=== PATIENT | male | born 1970 | race Caucasian/White ===

== ENCOUNTER 2021-01-16 10:41 | Outpatient (REF) | payer OTHER, SELFPAY ==
[2021-01-16 22:13] LABS: Hemoglobin A1C 5.8 % (<5.7)
[2021-01-16 22:18] LABS: ALT 53 U/L (16-63); AST 22 U/L (15-37); Albumin 3.9 g/dL (3.4-5.0); Alkaline Phosphatase 121 U/L (46-116); Anion Gap 10.3 mmol/L (3-11); BUN 13 mg/dL (7-18); Bilirubin, Total 0.5 mg/dL (0.2-1.0); CO2 27.7 mmol/L (21.0-32.0); CREATININE 1.5 mg/dL (0.70-1.30); Calcium 9.2 mg/dL (8.5-10.1); Calculated LDL 87 mg/dL (<100); Chloride 102 mmol/L (98-107); Cholesterol 157 mg/dL (<200); Estimated GFR 49.74 (mL/min/1.73m2); GGT 57 U/L (15-85); Glucose 132 mg/dL (74-106); HDL Cholesterol 54 mg/dL (40-60); Potassium 4.2 mmol/L (3.5-5.1); Sodium 140 mmol/L (136-145); Total Protein 7.5 g/dL (6.4-8.2); Triglyceride 82 mg/dL (<150)
[2021-01-16 22:59] LABS: Bilirubin, Direct 0.1 mg/dL (0.0-0.2)
== END 2021-01-16 10:42 | disposition home or self-care (01) ==
LOC: NCHCN 10:41
PROVIDERS: PCP Emergency Medicine; Visit Provider Emergency Medicine
DX: I10 Essential (primary) hypertension (principal); E78.5 Hyperlipidemia, unspecified; E66.9 Obesity, unspecified; E11.9 Type 2 diabetes mellitus without complications
CPT/HCPCS: 80048; 80061; 80076; 82977; 83036

== ENCOUNTER 2023-02-23 06:48 | Observation (INO) | payer BC, SELFPAY ==
[2023-02-23] VITALS (53 sets, daily range): BP systolic 122–148; BP diastolic 74–128; PULSE 58–107; RESP 8–26; TEMP 35.3–36.9; O2SAT 94–99
--- NOTE | 2023-02-23 07:00 | RT.EKG_ITS ---
APPROVED REPORT Exam: Resting ECG Reason for Exam: sob Patient Location: E HR:77 bpm ECG Measurements Heart Rate 77 AXIS ND 160 P -4 QRSd 95 QRS -11 QT 376 T 20 QTc 426 Conclusion Sinus rhythm...normal P axis, V-rate 60- 99 Narrow complex normal sinus rhythm at a rate of 77. Normal axis. Intervals within normal limits. T wave inversion in lead III. No ST segment abnormalities. No acute injury pattern. No prior for co mparison.
--- NOTE | 2023-02-23 07:30 | DI.RAD_ITS ---
Exam(s) XR CHEST 2V PA LATERAL EXAM: XR CHEST 2V PA LATERAL CLINICAL HISTORY: Shortness of breath TECHNIQUE: 2D digital imaging was performed. COMPARISON: CR ABD FLAT UPRIGHT PA CHEST from 10/20/2012 FINDINGS: HEART: Normal size. Aorta: Not dilated. PULMONARY VASCULATURE: Normal. LUNGS: Streaky densities seen in the region of the lingula appear unchanged from prior may represent atelectasis versus scarring. No definite acute infiltrate. PLEURAL SPACE: No pleural effusion or pneumothorax. BONE:Unremarkable for age. IMPRESSION: No acute abnormality. DATA REPOSITORY: RADIATION DOSE DELIVERED:
--- NOTE | 2023-02-23 07:40 | ED.GENADUL_ITS ---
Discharge Plan Discharge Details Chief Complaint: SOB Primary Care Provider: Waqar Abdalla ED Provider: Dominic Mesa Home Meds and New Rx's Prescriptions: No Action simvastatin 10 mg tablet 10 mg PO QHS Qty: 90 3RF lisinopril 10 mg tablet 10 mg PO DAILY Qty: 90 6RF fexofenadine [Aller-ease] 180 MG tablet 1 tab PO DAILY Medical Decision Making This is an overall well-appearing normothermic and not tachycardic 52-year-old male with a risk factors for ACS and dizziness and shortness of breath concerning for possibility of ACS. His ECG is nonischemic however based on his risk factors will obtain 2 troponins. PE is also certainly a possibility so we will obtain a D-dimer as patient is low risk for Wells perspective. He did vomit several days ago and this raises the possibility of esophageal rupture. He has no crepitance so my suspicion for esophageal rupture is low. No trauma and equal clear lungs so no suspicion for pneumothorax. He has not had any fevers nor cough to suggest pneumonia however will obtain a two-view chest x- ray. No tearing quality to his pain to suggest aortic dissection. No rash to his chest to suggest zoster. No pain out of proportion to suggest necrotizing soft tissue infection. He is not hypotensive nor tachycardic and his ECG does not show low voltage so I am not suspicious for tamponade. Furthermore he is not a dialysis patient and is not high risk for a pericardial effusion. I have initiated testing in the ED and signed patient out to Dr. Torrez pending reassessment and follow-up on labs and two-view chest x-ray. No significant lower extremity edema to suggest acute CHF. Patient has an elevated BMI which raises possibility of pancreatitis so I sent a lipase. I treated the patient with 324 mg of aspirin. His also asked me to test him for Lyme disease as he has reportedly been bit by multiple ticks this year. I sent a tickborne panel however will defer doxycycline at this point time as patient's ECG does not show any signs of Lyme carditis given normal NM interval. Furthermore he is not ill-appearing to suggest babesiosis nor ehrlichiosis. HPI General Date/Time Provider Initiated Documentation: 02/23/23 07:34 . HPI Narrative: This is a 52-year-old male with family history of coronary artery disease and personal history of hypertension hyperlipidemia and obesity arriving to the emergency department via private vehicle in the setting of nauseousness, shortness of breath, dizziness and a discomfort in his epigastrium. 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 He left work and came home early which his reports is atypical. He occasionally has had chest pain during this duration. His chest pain did not radiate. It was not associated with diaphoresis. He does note that several days ago he had a pain in his left wrist and subsequently became stiff. 3 days ago he also vomited. He has had no fevers nor chills. He is never had a PE nor DVT. He regularly drinks alcohol but does not have a history of withdrawal from alcohol. He uses chewing tobacco. He has not taken any recent falls. He has not noticed any recent rashes. Related Data Home Medications Medication Instructions Recorded Confirmed fexofenadine 180 mg tablet 1 tab PO DAILY 10/23/12 02/23/23 (Aller-ease) lisinopril 10 mg tablet 10 mg PO DAILY #90 tab-caps 02/21/22 02/23/23 simvastatin 10 mg tablet 10 mg PO QHS #90 tabs 02/21/22 02/23/23 Previous Rx's Medication Instructions Recorded lisinopril 10 mg tablet 10 mg PO DAILY #90 tab-caps 02/21/22 simvastatin 10 mg tablet 10 mg PO QHS #90 tabs 02/21/22 Allergies Allergy/AdvReac Type Severity Reaction Status Date / Time Iodinated Contrast Media Allergy Unverified 02/23/23 06:59 [Iodinated Contrast- Oral and IV Dye] shellfish derived Allergy Unverified 02/23/23 06:59 pet dander Allergy Mild Uncoded 02/23/23 06:59 General Stated Complaint: SOB KATELIN: 2 PFSH All Active Problems (Updated 02/21/22 @ 14:08 by Waqar Abdalla NP) Renal insufficiency (Chronic) H/O splenectomy (Acute) Obesity (Chronic) Hyperlipidemia (Acute) Hypertension (Chronic) Medical History Family history of coronary artery disease (11/24/14) Fracture of tibia History of tobacco use Surgical History (Updated 01/16/21 @ 16:27 by Tim Reyes DO) Fracture, Open Treatment right leg Splenomegaly 1977 Family History (Updated 02/22/22 @ 09:12 by Marina Arguello) Mother Essential hypertension Hyperlipidemia Father Myocardial infarction Brother Heart disease Myocardial infarction Grandfather Heart disease Myocardial infarction Grandmother Personal history of malignant neoplasm Grandmother Heart disease Stroke Social History (Updated 02/22/22 @ 10:13 by Marina Arguello) Smoking/Tobacco Use Status: Never Tobacco: How many years used: 30 Smokeless tobacco user: snuff Quit status: not considering quitting Second Hand Exposure: Yes Smoking risk assessment performed?: Yes Alcohol Intake: current Alcohol Intake frequency: 0-2 drinks per day Alcohol type: beer Drug use: Never Substance use type: does not use Caregiver/Support person: No Household members: spouse Housing: house Communication Needs: None Do you need help understanding health information?: Never Pets and animals: Yes Pets and animals: dog(s) and horse(s) Sexually active: Yes Do you think of yourself as: straight/heterosexual Current gender identity: male What is your relationship status?: How often do you talk on the phone with friends or family?: three or more times per week How often do you get together with friends or relatives?: once per week How often do you attend congregation or restorationist services?: decline to answer Do you belong to any clubs or organized social groups?: no Panel score (0-1 are the most socially isolated patients): 2 What type of physical activity do you participate in: none Frequency: does not exercise Linda/Confucianist: No preference Special linda needs: No Seatbelt use: sometimes Helmet use: Yes Helmet use: sometimes Drive intox or ride w/intox p d driver: No Exam Narrative Exam Narrative: General: Well-appearing in no acute distress speaking in complete sentences. Head: Normocephalic, atraumatic. Eye: Extraocular eye movements intact. No conjunctival injection. No scleral icterus. Ear, nose, mouth, throat: Grossly normal inspection. Normal voice, handling secretions normally. Neck: Trachea midline. Cardiovascular: Well-perfused distal extremities. Regular rate and rhythm. Respiratory: Nonlabored respiration. Clear lungs bilaterally. Gastrointestinal: Nondistended abdomen. Soft nontender abdomen. Musculoskeletal: No edema. Moving all 4 extremities spontaneously. Skin: Normal for age and race, grossly normal temperature and turgor. No acute rash. Neurologic: Alert and appropriate, no apparent acute deficits. Psychiatric: Mood and manner are appropriate. Grooming and personal hygiene are appropriate. Course Vital Signs Vital signs: Vital Signs Temperature 36.9 C 02/23/23 06:51 Pulse 77 02/23/23 06:51 Respiratory Rate 16 02/23/23 06:51 Blood Pressure 146/81 H 02/23/23 06:51 Pulse Oximetry 95 02/23/23 06:51 Temperature 36.9 C 02/23/23 06:51 Temperature Source Temporal Artery Scan 02/23/23 06:51 Pulse 77 02/23/23 06:51 Respiratory Rate 20 02/23/23 07:21 Respiratory Effort Normal 02/23/23 07:21 Respiratory Depth Normal 02/23/23 07:21 Respiratory Pattern Normal 02/23/23 07:21 Blood Pressure 146/81 H 02/23/23 06:51 Blood Pressure Position Supine 02/23/23 06:51 Pulse Oximetry 95 02/23/23 06:51 Oxygen Delivery Method Room Air 02/23/23 06:51 Oxygen Flow Rate 0 02/23/23 06:51 Pain Level 0 02/23/23 06:51
--- NOTE | 2023-02-23 07:42 | ED.PROG_ITS ---
Date of service: 02/23/23 Time of Service: 08:00 Medical Decision Making The patient is asplenic. He has not received any of his immunizations. His chest x-ray shows a question of atelectasis versus pneumonia in the medial left base. He did have a cough and cold about a month ago and is improving but I am going to write for Rocephin and Zithromax to cover him for pneumonia because he is asplenic. The patient is willing to be admitted. I have discussed with the hospitalist and we will admit him for observation Medical Records Medical records reviewed: Yes I reviewed the patient's medical records. Lab Data Lab results reviewed: Yes I reviewed the patient's lab results. Narrative I have seen and examined the patient. I have asked the hospitalist to be paged. His HEART score is 4 (moderate). Sign Out Sign Out Data: Sign Out Comment: Patient will require follow-up of labs chest x-ray and D-dimer with the possibility of CT scan. He will also require reassessment. He has risk factors for ACS and hospitalization certainly seems reasonable if his ische samuel evaluation is negative. Last updated by Dominic Mesa MD at 02/23/23 07:48 Discharge Plan Disposition Patient Disposition: Admit to [facility] Discharge Details Clinical Impression: Breath shortness, Renal insufficiency, Hypertension, Hyperlipidemia, Obesity, H/O splenectomy, Epigastric abdominal pain Admit Date/Time: 02/23/23 11:58 Admit Provider: Arun Rosales Attending Provider: Arun Rosales Primary Care Provider: Waqar Abdalla ED Provider: Lori Saldana Discharge Data Discharge Date/Time-TO BE ENTERED AT DEPARTURE: 02/23/23 12:58 Discharge Physician: Lori Saldana
[2023-02-23] MEDS: Aspirin 81 MG CHEW 324 MG CH (07:45)
[2023-02-23 07:52] LABS: Abs Immature Grans 0.02 10^3/uL (0.0-0.06); Absolute Basophil Count 0.08 10^3/uL (0.0-0.2); Absolute Eosinophil Count 0.13 10^3/uL (0.0-0.7); Absolute Lymphocyte Count 2.14 10^3/uL (1.2-3.4); Absolute Monocyte Count 1.15 10^3/uL (0.1-0.8); Absolute Neutrophil Count 4.78 10^3/uL (1.2-6.7); Eosinophils % 1.6; HCT 43.8 % (40.0-50.0); HGB 15.3 g/dL (13.5-17.5); Immature Grans % 0.2; Lymphocytes % 25.8; MCH 34.6 pg (27.0-33.0); MCHC 34.9 % (32.0-36.0); MCV 99 fL (80-95); MPV 11.7 fL (8.0-11.0); Monocytes % 13.9; Neutrophils % 57.5; Platelet Count 297 10^3/uL (130-400); RBC 4.42 10^6/uL (4.36-5.78); RDW-SD 44.2 fL
[2023-02-23 08:14] LABS: ALT 50 U/L (16-63); AST 26 U/L (15-37); Albumin 3.7 g/dL (3.4-5.0); Alkaline Phosphatase 95 U/L (46-116); BUN 15 mg/dL (7-18); Bilirubin, Total 0.5 mg/dL (0.2-1.0); CREATININE 1.2 mg/dL (0.70-1.30); Calcium 9.1 mg/dL (8.5-10.1); Chloride 104 mmol/L (98-107); Estimated GFR 73.22 (mL/min/1.73m2); Glucose 112 mg/dL (74-106); Lipase 53 U/L (16-77); Potassium 3.9 mmol/L (3.5-5.1); Sodium 140 mmol/L (136-145); Total Protein 7.6 g/dL (6.4-8.2); Troponin I < 50 ng/L (<or=60)
[2023-02-23 08:30] LABS: D-Dimer 200 ng/mlFEU (<500)
--- NOTE | 2023-02-23 08:32 | DI.VRAD_ITS ---
PROCEDURE INFORMATION: Exam: XR Chest Exam date and time: 02/23/2023 8:20 AM Age: 52 years old Clinical indication: Other: Shortness of breath TECHNIQUE: Imaging protocol: Radiologic exam of the chest. Views: 2 views. COMPARISON: No relevant prior studies available. FINDINGS: Lungs: Opacity in the medial left base may represent atelectasis or pneumonia.. Pleural spaces: Unremarkable. No pleural effusion. No pneumothorax. Heart/Mediastinum: Unremarkable. No cardiomegaly. Bones/joints: Unremarkable. IMPRESSION: Opacity in the medial left base may represent atelectasis or pneumonia.. Dictated and Authenticated by: Calvin Hussein MD. Ordering:ALEAH Alfaro MD
[2023-02-23 09:17] LABS: COVID-19 PCR Negative (Negative); Influenza A PCR Negative (Negative); Influenza B PCR Negative (Negative); RSV PCR Negative (Negative)
[2023-02-23 09:18] LABS: Source Nasopharynx
--- NOTE | 2023-02-23 09:28 | W.EDPROG ---
Date of service: 02/23/23 Time of Service: 08:00 Sign Out Sign Out Data: Sign Out Comment: Patient will require follow-up of labs chest x-ray and D-dimer with the possibility of CT scan. He will also require reassessment. He has risk factors for ACS and hospitalization certainly seems reasonable if his ischemic evaluation is negative. Last updated by Dominic Mesa MD at 02/23/23 07:48 Discharge Plan Disposition Patient Disposition: Admit to [facility] Discharge Details Clinical Impression: Breath shortness, Renal insufficiency, Hypertension, Hyperlipidemia, Obesity, H/O splenectomy, Epigastric abdominal pain Admit Date/Time: 02/23/23 11:58 Admit Provider: Arun Rosales Attending Provider: Arun Rosales Primary Care Provider: Waqar Abdalla ED Provider: Lori Saldana Discharge Data Discharge Date/Time-TO BE ENTERED AT DEPARTURE: 02/23/23 12:58 Discharge Physician: Lori Saldana
[2023-02-23] MEDS: Azithromycin 250 MG TAB 500 MG PO (10:00)
[2023-02-23 11:09] LABS: Troponin I < 50 ng/L (<or=60)
--- NOTE | 2023-02-23 16:34 | W.PM.HP.N ---
Date of service: 02/23/23 Time of Service: 16:35 Assessment and Plan Assessment and plan (1) Epigastric abdominal pain: Status: Acute Assessment and plan: Protonix IV Telemetry patient eating pizza hut during assessment, encoucraged to eat heart healthy (2) Family history of coronary artery disease: Assessment and plan: Brother and father Echo ordered for 02/24 (3) Obesity: Status: Chronic Assessment and plan: BMI 32.7 nutrition consult (4) Hyperlipidemia: Status: Acute Assessment and plan: continue simvastatin; check lipid panel am 02/24 (5) Hypertension: Status: Chronic Assessment and plan: continue lisinopril Discussed with Dr Rosales History of Present Illness Narrative: This is a 52-year-old male patient with past medical history of hypertension, hyperlipidemia and obesity who presented to the [facility] emergency department via private vehicle on 02/23 with complaint of nausea, shortness of breath, dizziness and a epigastric pain.? 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 3 days ago he did vomit, but has not since.? He has had no fevers nor chills.? He is never had a PE nor DVT.? He regularly drinks alcohol but does not have a history of withdrawal from alcohol.? He uses chewing tobacco.? He has not had any recent falls.? He has not noticed any recent rashes. He denies palpitations. In the ED he has negative troponins, EKG nonishcemic, normal sinus rhythm. Patient's father and brother both had heart issues in their 40s. ? Labs unremarkable. CXR no acute finding. He is placed on the medical floor on observation status with potential echo and stress test tomorrow. Review of Systems All systems reviewed & are unremarkable except as noted in HPI and below PFSH All Active Problems (Updated 02/23/23 @ 10:11 by Lori Saldana MD) Breath shortness (Acute) Epigastric abdominal pain (Acute) Renal insufficiency (Chronic) H/O splenectomy (Acute) Obesity (Chronic) Hyperlipidemia (Acute) Hypertension (Chronic) Medical History Family history of coronary artery disease (11/24/14) Fracture of tibia History of tobacco use Surgical History (Updated 02/23/23 @ 10:11 by Lori aSldana MD) Fracture, Open Treatment right leg Splenomegaly 1978 Family History (Updated 02/22/22 @ 09:12 by Marina Arguello) Mother Essential hypertension Hyperlipidemia Father Myocardial infarction Brother Heart disease Myocardial infarction Grandfather Heart disease Myocardial infarction Grandmother Personal history of malignant neoplasm Grandmother Heart disease Stroke Social History (Updated 02/22/22 @ 10:13 by Marina Arguello) Smoking/Tobacco Use Status: Never Tobacco: How many years used: 30 Smokeless tobacco user: snuff Quit status: not considering quitting Second Hand Exposure: Yes Smoking risk assessment performed?: Yes Alcohol Intake: current Alcohol Intake frequency: 0-2 drinks per day Alcohol type: beer Drug use: Never Substance use type: does not use Caregiver/Support person: No Household members: spouse Housing: house Communication Needs: None Do you need help understanding health information?: Never Pets and animals: Yes Pets and animals: dog(s) and horse(s) Sexually active: Yes Do you think of yourself as: straight/heterosexual Current gender identity: male What is your relationship status?: How often do you talk on the phone with friends or family?: three or more times per week How often do you get together with friends or relatives?: once per week How often do you attend muslim or adventist services?: decline to answer Do you belong to any clubs or organized social groups?: no Panel score (0-1 are the most socially isolated patients): 2 What type of physical activity do you participate in: none Frequency: does not exercise Linda/Pentecostal: No preference Special linda needs: No Seatbelt use: sometimes Helmet use: Yes Helmet use: sometimes Drive intox or ride w/intox limo driver: No Meds Allergies and Home Medications Allergies Allergy/AdvReac Type Severity Reaction Status Date / Time Iodinated Contrast Media Allergy Unverified 02/23/23 06:59 [Iodinated Contrast- Oral and IV Dye] shellfish derived Allergy Unverified 02/23/23 06:59 pet dander Allergy Mild Uncoded 02/23/23 06:59 Home Medications Medication Instructions Recorded Confirmed Type fexofenadine 180 mg tablet 1 tab PO DAILY 10/23/12 02/23/23 History (Aller-ease) lisinopril 10 mg tablet 10 mg PO DAILY #90 tab-caps 02/21/22 02/23/23 Rx simvastatin 10 mg tablet 10 mg PO QHS #90 tabs 02/21/22 02/23/23 Rx azelastine 205.5 mcg (0.15 %) See Rx Instructions .Route 02/23/23 02/23/23 History nasal spray .COMPLEX PRN Exam Narrative Exam Narrative: General: Well-appearing in no acute distress speaking in complete sentences. Head: Normocephalic, atraumatic. Eye: Extraocular eye movements intact. No conjunctival injection. No scleral icterus. Ear, nose, mouth, throat: Grossly normal inspection. Normal voice, handling secretions normally. Neck: Trachea midline. Cardiovascular: Well-perfused distal extremities. Regular rate and rhythm. Respiratory: Nonlabored respiration. Clear lungs bilaterally. Gastrointestinal: Nondistended abdomen. Soft nontender abdomen. Musculoskeletal: No edema. Moving all 4 extremities spontaneously. Skin: Normal for age and race, grossly normal temperature and turgor. No acute rash. Neurologic: Alert and appropriate, no apparent acute deficits. Psychiatric: Mood and manner are appropriate. Grooming and personal hygiene are appropriate. Results Labs 02/23/23 07:15 02/23/23 07:15 Labs: Laboratory Results - last 24 hr 02/23/23 02/23/23 02/23/23 07:15 07:15 07:15 WBC 8.30 RBC 4.42 Hgb 15.3 Hct 43.8 MCV 99 H MCH 34.6 H MCHC 34.9 RDW 12.0 Plt Count 297 MPV 11.7 H Immature Gran % 0.2 Neutrophils % 57.5 Lymphocytes % 25.8 Monocytes % 13.9 Eosinophils % 1.6 Basophils % 1.0 Nucleated RBC % 0.0 Absolute Neutrophils 4.78 Absolute Lymphocytes 2.14 Absolute Monocytes 1.15 H Absolute Eosinophils 0.13 Absolute Basophils 0.08 D-Dimer 200 Sodium 140 Potassium 3.9 Chloride 104 Carbon Dioxide 28.0 Anion Gap 8.0 BUN 15 Creatinine 1.2 Est GFR (CKD-EPI 2020) 73.22 Glucose 112 H Calcium 9.1 Magnesium 2.0 Total Bilirubin 0.5 AST 26 ALT 50 Alkaline Phosphatase 95 Troponin I < 50 Total Protein 7.6 Albumin 3.7 Lipase 53 COVID-19 Source SARS-CoV-2 (PCR) Influenza Type A (PCR) Influenza Type B (PCR) RSV (PCR) 02/23/23 02/23/23 02/23/23 07:34 08:05 10:45 WBC RBC Hgb Hct MCV MCH MCHC RDW Plt Count MPV Immature Gran % Neutrophils % Lymphocytes % Monocytes % Eosinophils % Basophils % Nucleated RBC % Absolute Neutrophils Absolute Lymphocytes Absolute Monocytes Absolute Eosinophils Absolute Basophils D-Dimer Sodium Potassium Chloride Carbon Dioxide Anion Gap BUN Creatinine Est GFR (CKD-EPI 2020) Glucose Calcium Magnesium Total Bilirubin AST ALT Alkaline Phosphatase Troponin I Cancelled < 50 Total Protein Albumin Lipase COVID-19 Source Nasopharynx SARS-CoV-2 (PCR) Negative Influenza Type A (PCR) Negative Influenza Type B (PCR) Negative RSV (PCR) Negative Last Vital Signs Temp 35.9 C L 02/23/23 15:05 Pulse 85 02/23/23 15:24 Resp 17 02/23/23 13:08 BP 147/87 H 02/23/23 15:05 Pulse Ox 97 02/23/23 15:05 Time Spent Time spent with Patient: 55-74 minutes Time was spent: preparing to see the patient(eg.review tests), obtaining and/or reviewing separately otained hiistory, ordering medications,tests, procedures, referring, communicating with other health rn wound care, indepentently interpreting results, counseling the patient and care coordination
[2023-02-23] MEDS: Pantoprazole 40 MG VIAL IVP (19:26)
[2023-02-23] MEDS: Simvastatin 10 MG TAB PO (21:27)
--- NOTE | 2023-02-23 22:28 | ED.PROG_ITS ---
Date of service: 02/23/23 Time of Service: 08:00 Narrative I have seen and examined the patient. I have asked the hospitalist to be paged. His HEART score is 4 (moderate). Sign Out Sign Out Data: Sign Out Comment: Patient will require follow-up of labs chest x-ray and D-dimer with the possibility of CT scan. He will also require reassessment. He has risk factors for ACS and hospitalization certainly seems reasonable if his ischemic evaluation is negative. Last updated by Dominic Mesa MD at 02/23/23 07:48 Discharge Plan Disposition Patient Disposition: Admit to [facility] Discharge Details Clinical Impression: Breath shortness, Renal insufficiency, Hypertension, Hyperlipidemia, Obesity, H/O splenectomy, Epigastric abdominal pain Admit Date/Time: 02/23/23 11:58 Admit Provider: Arun Rosales Attending Provider: Arun Rosales Primary Care Provider: Waqar Abdalla ED Provider: Lori Saldana Discharge Data Discharge Date/Time-TO BE ENTERED AT DEPARTURE: 02/23/23 12:58 Discharge Physician: Lori Saldana
[2023-02-24 00:19] VITALS: BP 111/69; PULSE 60; RESP 18; TEMP 36.8; O2SAT 95
[2023-02-24 05:19] VITALS: BP 112/71; PULSE 78; RESP 18; TEMP 36.5; O2SAT 96
[2023-02-24 07:00] VITALS: PULSE 61
[2023-02-24 07:14] LABS: Abs Immature Grans 0.01 10^3/uL (0.0-0.06); Absolute Basophil Count 0.08 10^3/uL (0.0-0.2); Absolute Eosinophil Count 0.21 10^3/uL (0.0-0.7); Absolute Lymphocyte Count 2.54 10^3/uL (1.2-3.4); Absolute Monocyte Count 1.34 10^3/uL (0.1-0.8); Absolute Neutrophil Count 5.03 10^3/uL (1.2-6.7); Basophils % 0.9; Eosinophils % 2.3; HGB 14.9 g/dL (13.5-17.5); Immature Grans % 0.1; Lymphocytes % 27.6; MCH 34.8 pg (27.0-33.0); MCHC 34.7 % (32.0-36.0); MCV 101 fL (80-95); Monocytes % 14.5; Neutrophils % 54.6; Platelet Count 275 10^3/uL (130-400); RBC 4.28 10^6/uL (4.36-5.78); RDW 12.2 % (11.8-14.1); RDW-SD 45.5 fL; WBC 9.21 10^3/uL (4.4-10.8)
[2023-02-24 07:20] VITALS: BP 109/69; PULSE 67; RESP 16; TEMP 36.4; O2SAT 98
[2023-02-24 07:34] LABS: ALT 51 U/L (16-63); AST 27 U/L (15-37); Albumin 3.3 g/dL (3.4-5.0); Alkaline Phosphatase 88 U/L (46-116); Anion Gap 8.6 mmol/L (3-11); BUN 14 mg/dL (7-18); Bilirubin, Total 0.6 mg/dL (0.2-1.0); CO2 27.4 mmol/L (21.0-32.0); CREATININE 1.3 mg/dL (0.70-1.30); Calcium 8.9 mg/dL (8.5-10.1); Calculated LDL 97 mg/dL (<100); Chloride 104 mmol/L (98-107); Cholesterol 170 mg/dL (<200); Estimated GFR 66.51 (mL/min/1.73m2); Glucose 108 mg/dL (74-106); HDL Cholesterol 47 mg/dL (40-60); Magnesium 2.1 mg/dL (1.8-2.4); Potassium 4.2 mmol/L (3.5-5.1); Sodium 140 mmol/L (136-145); Total Protein 7.2 g/dL (6.4-8.2); Triglyceride 134 mg/dL (<150)
[2023-02-24] MEDS: Lisinopril 10 MG TAB PO (08:52)
[2023-02-24] MEDS: Pantoprazole 40 MG VIAL IVP (08:52)
[2023-02-24] MEDS: Fexofenadine 180 MG TAB PO (08:52)
[2023-02-24 08:56] VITALS: BP 126/80
[2023-02-24] MEDS: Normal Saline Flush 10 ML SYR (09:17)
[2023-02-24 10:27] LABS: Lyme Ab w Rflx to Lyme Confirm Negative (Negative)
--- NOTE | 2023-02-24 10:46 | W.PM.DS.N ---
Date of service: 02/24/23 Time of Service: 10:47 DS: Diagnosis Discharge Diagnosis (1) Epigastric abdominal pain: Status: Acute (2) Family history of coronary artery disease: Asessment and Plan: Echo today:Normal left ventricular wall thickness and chamber size.? Ejection fraction is 50 to 55%.? There are no segmental wall motion abnormalities. Normal right ventricular size and systolic function Both atria are normal in size There is no structural or hemodynamically significant valvular disease Stress ECG Conclusion 1. Resting electrocardiogram was within normal limits 2. Patient exercised on the Luis protocol completed a workload of 10.53 METS, limited by shortness of breath and fatigue 3. Normal heart rate and blood pressure response to exercise.? The patient achieved 100% of predicted heart rate for age 4. There was no electrocardiographic evidence of myocardial ischemia 5. There were no significant dysrhythmias (3) Obesity: Status: Chronic (4) Hyperlipidemia: Status: Acute (5) Hypertension: Status: Chronic Discharge Plan Disposition Patient Disposition: Home Condition: Good Discharge Details Reason For Visit: Dizzy;epigastric pain Admit Date/Time: 02/23/23 11:58 Admit Provider: Arun Rosales Attending Provider: Arun Rosales Primary Care Provider: Waqar Abdalla Hospital Course Hospital Course: This is a 52-year-old male patient with past medical history of hypertension, hyperlipidemia and obesity who presented to the [facility] emergency department via private vehicle on 02/23 with complaint of nausea, shortness of breath, dizziness and a epigastric pain.? 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 3 days ago he did vomit, but has not since.? He has had no fevers nor chills.? He is never had a PE nor DVT.? He regularly drinks alcohol but does not have a history of withdrawal from alcohol.? He uses chewing tobacco.? He has not had any recent falls.? He has not noticed any recent rashes. He denies palpitations.? In the ED he had negative troponins, EKG nonishcemic, normal sinus rhythm. Patient's father and brother both had heart issues in their 40s. ? Labs unremarkable. CXR no acute finding.? He was placed on the medical floor on observation status. Labs continued to be normal. Echo and stress test completed and normal. He was told to follow up with his PCP and if this returns consider referal to cardiology, but risk at this time is very low. He was changed from OTC omeprazole to pantoprazole daily with follow up from PCP. He should continue his home medications. Home Meds and New Rx's Prescriptions: New pantoprazole 40 mg tablet,delayed release (DR/EC) 40 mg PO DAILY Qty: 30 0RF Continued simvastatin 10 mg tablet 10 mg PO QHS Qty: 90 3RF lisinopril 10 mg tablet 10 mg PO DAILY Qty: 90 6RF fexofenadine [Aller-ease] 180 MG tablet 1 tab PO DAILY azelastine 205.5 mcg (0.15 %) [place],Non-Aerosol See Rx Instructions .ROUTE .COMPLEX PRN Rx Instructions: 1 spray as needed Discharge Instructions Instructions: GERD (Gastroesophageal Reflux Disease) (DC), Dizziness (GEN) Additional Instructions: Drink plenty of fluids. Start pantroprazole 40 mg daily for GERD. Continue other home medications. Your echocardiogram and stress test were normal. Follow up with primary care. If you have continued symptoms they may refer you to cardiology. Stand Alone Forms: Nursing Discharge Form Referrals: Waqar Abdalla, [facility]GUILLON DEBEADER [Primary Care Provider] - 02/26/23 3:00 pm (1-2 weeks; started on Pantoprazole 40 mg daily; cardiac workup neg, outpt stress test pending) Activity:: Activity as Tolerated Equipment/Supplies:: No Equipment Needed Diet:: Low Sodium Discharge Orders Discharge Orders: Discharge Order (Routine); Ordered 02/24/23 Ordered By: Zayra Clark Discharge Data Discharge Date/Time-TO BE ENTERED AT DEPARTURE: 02/24/23 15:43 DS: Summary Time Spent with Patient providing and/or coordinating discharge services: Greater than 30 minutes Status at Discharge Functional status at discharge: independent ambulation Overall status at discharge: patient is back to baseline Mental Status: mental status grossly normal Speech and Movement: speech and movement normal Mood: congruent mood Affect: normal affect Exam Narrative Exam Narrative: General: Well-appearing in no acute distress speaking in complete sentences. Head: Normocephalic, atraumatic. Eye: Extraocular eye movements intact. No conjunctival injection. No scleral icterus. Ear, nose, mouth, throat: Grossly normal inspection. Normal voice, handling secretions normally. Neck: Trachea midline. Cardiovascular: Well-perfused distal extremities. Regular rate and rhythm. Respiratory: Nonlabored respiration. Clear lungs bilaterally. Gastrointestinal: Nondistended abdomen. Soft nontender abdomen. Musculoskeletal: No edema. Moving all 4 extremities spontaneously. Skin: Normal for age and race, grossly normal temperature and turgor. No acute rash. Neurologic: Alert and appropriate, no apparent acute deficits. Psychiatric: Mood and manner are appropriate. Grooming and personal hygiene are appropriate. Psych Mental Status: mental status grossly normal Speech and Movement: speech and movement normal Mood: congruent mood Affect: normal affect DS: Data Vitals/I&O Vitals and I&O: Vital Signs Temperature 36.4 C L 02/24/23 07:20 Temperature Source Tympanic 02/24/23 07:20 Pulse 67 02/24/23 07:20 Pulse Rhythm Regular 02/23/23 16:36 Pulse 74 02/23/23 11:30 Respiratory Rate 16 02/24/23 07:20 Respiratory Effort Normal, Non-Labored 02/24/23 08:15 Respiratory Depth Normal 02/24/23 08:15 Respiratory Pattern Normal 02/24/23 08:15 Blood Pressure 126/80 02/24/23 08:56 Blood Pressure Mean 95 02/23/23 10:31 Blood Pressure Position Supine 02/23/23 06:51 Pulse Oximetry 98 02/24/23 07:20 Oxygen Delivery Method Room Air 02/24/23 07:20 Oxygen Flow Rate 0 02/24/23 07:20 Pain Level 0 02/24/23 07:20 Comment pt states he usually takes lisinipril for blood pressure, has not taken today 02/23/23 13:06 Intake & Output 02/23/23 02/23/23 02/24/23 11:59 23:59 11:59 Intake Total 300 / 300 Balance 300 / 300 Weight 97.522 kg 97.522 kg 98 kg Intake: Oral 300 / 300 Other: Urine Appearance Clear Data Completed and Pending Labs on day of discharge: Labs from last 24 hours 02/24/23 02/24/23 02/23/23 07:05 07:05 10:45 WBC 9.21 RBC 4.28 L Hgb 14.9 Hct 43.0 MCV 101 H MCH 34.8 H MCHC 34.7 RDW 12.2 Plt Count 275 MPV 11.0 Immature Gran % 0.1 Neutrophils % 54.6 Lymphocytes % 27.6 Monocytes % 14.5 Eosinophils % 2.3 Basophils % 0.9 Nucleated RBC % 0.0 Absolute Neutrophils 5.03 Absolute Lymphocytes 2.54 Absolute Monocytes 1.34 H Absolute Eosinophils 0.21 Absolute Basophils 0.08 Sodium 140 Potassium 4.2 Chloride 104 Carbon Dioxide 27.4 Anion Gap 8.6 BUN 14 Creatinine 1.3 Est GFR (CKD-EPI 2020) 66.51 Glucose 108 H Calcium 8.9 Magnesium 2.1 Total Bilirubin 0.6 AST 27 ALT 51 Alkaline Phosphatase 88 Troponin I < 50 Total Protein 7.2 Albumin 3.3 L Triglycerides 134 Total Cholesterol 170 LDL Cholesterol, Calc 97 HDL Cholesterol 47 PFSH All Active Problems (Updated 02/23/23 @ 10:11 by Lori Saldana MD) Breath shortness (Acute) Epigastric abdominal pain (Acute) Renal insufficiency (Chronic) H/O splenectomy (Acute) Obesity (Chronic) Hyperlipidemia (Acute) Hypertension (Chronic) Medical History Family history of coronary artery disease (11/24/14) Fracture of tibia History of tobacco use Surgical History (Updated 02/23/23 @ 10:11 by Lori Saldana MD) Fracture, Open Treatment right leg Splenomegaly 1977 Family History (Updated 02/22/22 @ 09:12 by Marina Arguello) Mother Essential hypertension Hyperlipidemia Father Myocardial infarction Brother Heart disease Myocardial infarction Grandfather Heart disease Myocardial infarction Grandmother Personal history of malignant neoplasm Grandmother Heart disease Stroke Social History (Updated 02/22/22 @ 10:13 by Marina Arguello) Smoking/Tobacco Use Status: Never Tobacco: How many years used: 30 Smokeless tobacco user: snuff Quit status: not considering quitting Second Hand Exposure: Yes Smoking risk assessment performed?: Yes Alcohol Intake: current Alcohol Intake frequency: 0-2 drinks per day Alcohol type: beer Drug use: Never Substance use type: does not use Caregiver/Support person: No Household members: spouse Housing: house Communication Needs: None Do you need help understanding health information?: Never Pets and animals: Yes Pets and animals: dog(s) and horse(s) Sexually active: Yes Do you think of yourself as: straight/heterosexual Current gender identity: male What is your relationship status?: How often do you talk on the phone with friends or family?: three or more times per week How often do you get together with friends or relatives?: once per week How often do you attend worship or mosque services?: decline to answer Do you belong to any clubs or organized social groups?: no Panel score (0-1 are the most socially isolated patients): 2 What type of physical activity do you participate in: none Frequency: does not exercise Linda/Gnosticism: No preference Special linda needs: No Seatbelt use: sometimes Helmet use: Yes Helmet use: sometimes Drive intox or ride w/intox petroleum transport driver: No Time Spent with Patient Time Spent with Patient: 45-69 minutes Time was spent: preparing to see the patient(eg.review tests), ordering medications,tests, procedures, referring, communicating with other health home care companion, indepentently interpreting results, counseling the patient and care coordination
--- NOTE | 2023-02-24 11:00 | DI.US_ITS ---
APPROVED REPORT EXAM: Comprehensive 2D, Doppler, and color-flow Echocardiogram Patient Location: In-Patient Room/Bed: [address] Documents Closer: Rose Lainez RDCS (AE) Indications: Family HX CAD, Hyperlipidemia, Nausea, SOB Other Information Study Quality: Adequate Conclusion Normal left ventricular wall thickness and chamber size. Ejection fraction is 50 to 55%. There are no segmental wall motion abnormalities Normal right ventricular size and systolic function Both atria are normal in size There is no structural or hemodynamically significant valvular disease Right ventricular systolic pressure could not be estimated Wall motion Left Ventricle The left ventricle is normal size. Left ventricular systolic function is borderline. There is normal left ventricular wall thickness. No segmental wall motion abnormalities There is no ventricular septa l defect visualized. LVEF is 50-55%. Right Ventricle The right ventricle is normal size. The right ventricular systolic function is normal. Atria The left atrium size is normal. The right atrium size is normal. The interatrial septum is intact wit h no evidence for an atrial septal defect. Aortic Valve The aortic valve is normal in structure. Aortic valve is trileaflet. There is no aortic valvular sten osis. No aortic regurgitation is present. Mitral Valve The mitral valve is normal in structure. No evidence of mitral valve stenosis. Trace mitral regurgita tion. Tricuspid Valve The tricuspid valve is normal in structure. There is no tricuspid valve stenosis. Trace tricuspid reg urgitation. Pulmonic Valve The pulmonary valve is normal in structure. There is no pulmonic valvular stenosis. Trace pulmonic re gurgitation. Great Vessels The aortic root is normal in size. The ascending aorta is normal in size. The IVC collapses <50% with inspiration. Pericardium There is no pericardial effusion. 2D Dimensions IVSD d PLAX 0.94 cm M: 0.6-1.2 LV Vol A4C d MOD 96.7 mL LVPW d PLAX 0.93 cm M: 0.6 - 1.2 LV EF A4C MOD 58.2 % LVID d PLAX 4.87 cm M: 4.2 - 5.8 LV EF A2C MOD 50.5 % LVDs 3.55 cm M: 2.5 - 4.0 LV EF Biplane MOD 49.3 % Ao Root d 2.78 cm M: 3.1 - 3.7 Ao Asc Diam d 2.69 cm M: 2.6 - 3.4 LV EF Pedroichkenn 52.3 % LVEF (Marquez's) 49.32 % M: 52 - 72 LV Volume 92.80 mL M: 62 - 150 LV Volume Index 43.98 mL/m2 M: 34 - 74 LV Vol Biplane MOD 92.8 mL FS 26.85 % M-Mode TAPSE 2.20 cm (M/F) >1.7 LV Diastology LV E/e MED 0.10 (<14) E/A Ratio 1.2 LV E/e LAT 0.13 (<14) MV E Vmax 0.66 (0.4-1.3 m/s) MV A Vmax 0.55 (0.4-1.3 m/s) Aortic Valve LVOT Vmax 1.06 m/s LVOT Peak Grad 4.5 mmHg LVOT Mean Grad 2.5 mmHg LVOT Diam s 2.00 cm AoV Vmax 1.44 m/s Velocity Ratio 0.74 AoV Peak Grad 8.3 mmHg LVOT SV 76.46 mL AoV Mean Grad 4.3 mmHg AoV Area VTI 2.46 cm2 Mitral Valve MV DT 164 (160-240 msec) MV Vmax TIPS 0.72 m/s MV Mean Grad 0.8 (<2mmHg) MV VTI 0.272 m Pulmonary Valve PV Mean Grad 4.3 mmHg RVOT Peak Gr. 1.74 mmHg RVOT Mean Gr. 1.00 mmHg RVOT VTI 0.156 m RVOT Vmax 0.66 m/s Tricuspid Valve TR Peak Grad 21.0 mmHg
--- NOTE | 2023-02-24 12:57 | W.NUTCONSULT ---
Date of service: 02/24/23 Time of Service: 12:57 Nutritional Consult ASSESSMENT: Mr. Pablo is admitted for epigastric pain. His BMI is 32.9 kg/m2 c/w class 1 obesity. He has a h/o hyperlipidemia and HTN. Excellent PO intake. Mr. Pablo states that he feels like his diet is fairly healthy. He says he eats red meat though more than other meats. He states he does not eat junk. NUTRITIONAL DIAGNOSIS: Altered nutrition related labs and medical conditions INTERVENTION: Suggested to Mr. Pablo that he try to shift the balance in his diet to more fish and chicken than red meat. Red meat does not need to be excluded. Provided written materials on heart healthy nutrition therapy as well as my contact information. Encouraged him to contact me for any outpatient nutrition questions or concerns. MONITORING AND EVALUATION: Outpatient monitoring and evaluation of nutritional therapies and adherence if desired by patient. Time Spent in Nutritional Counseling and Treatment: 15
[2023-02-24 13:20] VITALS: PULSE 72
--- NOTE | 2023-02-24 13:25 | PDOC.CMDIS ---
Date of service: 02/24/23 Time of Service: 13:25 LACE Index Scoring Tool Questions: Length of Stay (in days): 1 Was the patient admitted via the E.D.?: Yes E.D. Visits: 1 Answers: Total Score: 5 Risk of Readmission: Low Risk Care Management Discharge Plan Reason for Hospitalization: Dizziness, Epigastric pain Discharge Plan: Hernandez is discharged home via private vehicle with family. He will follow up with his PCP and discharge plan of care as instructed. Cardiology referral may be ordered by your PCP, if needed. No new services are ordered. Patient/Family Education Needs: Review discharge instructions, limitations, medications and plan to follow up with outpatient providers. Discuss ask me three.
--- NOTE | 2023-02-24 13:30 | ETT_ITS ---
APPROVED REPORT Exam: Exercise Treadmill Patient Location: In-Patient Room/Bed: Stress Nurse: Sugar Herron RN Ordering Provider:MEGAN KIM, Contact Number: [phone] BMI: 32.68 Baseline Rhythm: Sinus Rhythm Indications: SOB Medical History Medical History: Epigastric pain, renal insufficiency, obesity, HLD, HTN, splenectomy Cardiac Medications: Lisinopril, pantoprazole sodium, simvastatin Allergies: Iodinated contrast Cardiac Risk Factors: Family hx, HTN, HLD, obesity Previous Cardiac Procedures: None Pretest Chest Pain Characteristics: None Exercise History: Sedentary Physical Disabilities: None Lung Sounds: Clear to auscultation Heart Sounds: Regular Stress Test Details Test: Exercise stress testing was performed using a Luis protocol. Rest Stress HR Resting HR Supine: 65 bpm Max Heart Rate (APMHR): 169 bpm Resting HR Standin bpm Target HR (85% APMHR): 144 bpm Max HR Achieved: 171 bpm % of APMHR: 101 Recovery HR: 98 bpm HR response to stress: Normal HR response to stress BP Resting BP Supine: 134/88 mmHg Resting BP Standin/88 mmHg Max BP: 178/80 mmHg Recovery BP: 138/78 mmHg BP response to stress: Normal blood pressure response to stress. ECG Resting ECG: Sinus Rhythm Ectopy: None Stress ECG: Sinus Tachycardia ST Change: No significant ST segment changes noted Arrhythmia: None Recovery ECG: Sinus Rhythm Recovery ST Change: No significant ST segment changes noted Recovery Arrhythmia: None Clinical Reason for Termination: Target HR Achieved, Fatigue Stress Symptoms: Moderate SOB Exercise duration: 09 min14 sec Highest Stage Reached: Stage 4: 4.2 mph at 16% grade. Exercise capacity: 10.53 METs Functional Capacity: 53 Angina Score: None Sullivan Treadmill Score: 8.4 Rate Pressure Product: [id number] Stress ECG Conclusion 1. Resting electrocardiogram was within normal limits 2. Patient exercised on the Luis protocol completed a workload of 10.53 METS, limited by shortness o f breath and fatigue 3. Normal heart rate and blood pressure response to exercise. The patient achieved 100% of predicted heart rate for age 4. There was no electrocardiographic evidence of myocardial ischemia 5. There were no significant dysrhythmias Sullivan Treadmill Score is 8.4 which is Low risk. Stress Test Summary STAGE Time (mins) Speed (mph) Grade (%) HR BP SpO2 SYMPTOMS METS Supine 65 134/88 Standing 75 144/88 1 3 1.7 10 121 158/76 93 Mild SOB 4.5 2 6 2.5 12 145 178/80 91 Mild SOB 7 3 9 3.4 14 164 Mod SOB 10 1 min recovery 160 146/58 3 min recovery 115 168/60 97 6 min recovery 98 138/78 94 All symptoms resolved
[2023-02-25 14:55] LABS: Anaplasma phagocytophilum Negative (Negative); B. miyamotoi PCR Negative (Negative); Babesia divergens/MO-1 Negative (Negative); Babesia duncani Negative (Negative); Babesia microti Negative (Negative); Ehrlichia chaffeensis Negative (Negative); Ehrlichia ewingii/canis Negative (Negative); Ehrlichia muris eauclairensis Negative (Negative)
== END 2023-02-24 15:43 | disposition home or self-care (01) ==
LOC: ER 10:57 → MS 17:29
PROVIDERS: Emergency Medicine; Nurse Practitioner Family; Admitting Provider Internal Medicine; Emergency Provider Emergency Medicine Emergency Medical Services; PCP Nurse Practitioner Family; Visit Provider Internal Medicine
DX: R10.13 Epigastric pain (principal); Z82.49 Family history of ischemic heart disease and other diseases of the circulatory system; E78.5 Hyperlipidemia, unspecified; E66.9 Obesity, unspecified; Z68.32 Body mass index [BMI] 32.0-32.9, adult; I10 Essential (primary) hypertension; R06.02 Shortness of breath; R11.0 Nausea; R42 Dizziness and giddiness; F17.290 Nicotine dependence, other tobacco product, uncomplicated; Z79.899 Other long term (current) drug therapy; Z90.81 Acquired absence of spleen; N28.89 Other specified disorders of kidney and ureter
CPT/HCPCS: 36415; 80053; 80061; 83690; 87637; 87798; 93005; 99285; 71046; 83735; 84484; 85025; 85379; 86618; 93010; 93017; 93306; 99222; 99239; G0378

== ENCOUNTER 2025-04-27 03:38 | Outpatient (CLI) | payer OTHER, SELFPAY ==
[2025-04-27 17:09] LABS: Hemoglobin A1C 5.5 % (<5.7)
[2025-04-27 17:36] LABS: ALT 44 U/L (16-63); AST 24 U/L (15-37); Albumin 3.7 g/dL (3.4-5.0); Alkaline Phosphatase 83 U/L (46-116); Anion Gap 7.7 mmol/L (3-11); BUN 14 mg/dL (7-18); Bilirubin, Total 0.4 mg/dL (0.2-1.0); CO2 29.3 mmol/L (21.0-32.0); Calcium 8.8 mg/dL (8.5-10.1); Calculated LDL 87 mg/dL (<100); Chloride 104 mmol/L (98-107); Cholesterol 166 mg/dL (<200); Estimated GFR 72.31 (mL/min/1.73m2); Glucose 99 mg/dL (74-106); HDL Cholesterol 51 mg/dL (>or=40); Potassium 4.2 mmol/L (3.5-5.1); Sodium 141 mmol/L (136-145); Total Protein 7.2 g/dL (6.4-8.2); Triglyceride 141 mg/dL (<150)
[2025-04-28 19:29] LABS: PSA, Screening 0.4 ng/mL (<=3.5)
== END 2025-04-27 03:39 | disposition home or self-care (01) ==
LOC: LBO 03:38
PROVIDERS: PCP Nurse Practitioner Family; Visit Provider Nurse Practitioner Family
DX: I10 Essential (primary) hypertension (principal); Z13.220 Encounter for screening for lipoid disorders; Z13.1 Encounter for screening for diabetes mellitus; Z12.5 Encounter for screening for malignant neoplasm of prostate
CPT/HCPCS: 36415; 80053; 80061; 84153; 83036